=== PATIENT | male | born 1995 | race Caucasian/White ===

== ENCOUNTER 2017-04-13 21:50 | Emergency (ER) | payer OTHER ==
[~2017-04-13 21:50] MED LIST: PRILOSEC20 MG PO
[2017-04-13 22:48] LABS: AMPHETAMINE QUAL UR NONE DETECTED (NEG <=1000)
[2017-04-13 23:08] LABS: CALCIUM 8.9 mg/dL (8.5-10.1); CARBON DIOXIDE 27.1 mmol/L (21-32); CHLORIDE SERUM 103 mmol/L (98-107); CREATININE SERUM 0.9 mg/dL (0.7-1.3); GFR1 > 60 mL/min; GLUCOSE SERUM 103 mg/dL (74-106); POTASSIUM SERUM 3.6 mmol/L (3.5-5.1); SODIUM SERUM 140 mmol/L (136-145)
[2017-04-13 23:22] LABS: BASOPHIL % 0.6 % (0-2); PLATELET COUNT 289 x10^3mcL (130-400); RED CELL DISTRIBUTION WIDTH 12.9 % (11.5-14.5)
[2017-04-14 00:27] VITALS: BP 136/66
== END 2017-04-14 01:10 | disposition home or self-care (01) ==
LOC: ED 21:50
PROVIDERS: Emergency Medicine
DX: R07.89 Other chest pain (principal); M54.2 Cervicalgia; Z98.890 Other specified postprocedural states
CPT/HCPCS: 36415

== ENCOUNTER 2018-04-03 17:37 | Emergency (ER) | payer OTHER ==
[~2018-04-03] VITALS: Ht 182.9 cm; Wt 126.6 kg
[2018-04-03 17:41] VITALS: Ht 182.9 cm; Wt 126.6 kg
[2018-04-03 20:53] VITALS: BP 134/74
== END 2018-04-03 23:11 | disposition home or self-care (01) ==
LOC: ED 17:37
DX: M54.2 Cervicalgia (principal); R13.10 Dysphagia, unspecified; Z87.81 Personal history of (healed) traumatic fracture

== ENCOUNTER 2020-06-06 12:29 | Emergency (ER) | payer OTHER ==
[~2020-06-06] VITALS: Ht 182.9 cm; Wt 129.3 kg
[2020-06-06 14:11] VITALS: BP 166/89; Ht 182.9 cm; Wt 129.3 kg
== END 2020-06-06 21:23 | disposition left against medical advice (07) ==
LOC: ED 12:29
DX: R10.13 Epigastric pain (principal); R10.11 Right upper quadrant pain